=== PATIENT | female | born 1980 | race Caucasian/White ===

== ENCOUNTER 2025-05-09 17:17 | Emergency (ER) | payer SELFPAY ==
--- NOTE | ~2025-05-09 | US_ITS ---
CLINICAL HISTORY: pain, UTI symptoms US Renal Comparison: None Findings: Right kidney is absent or obscured. Left kidney measures 10.4 cm length. No hydronephrosis of the imaged left kidney. No definite shadowing stone of the imaged left kidney. Portions of the kidney obscured by side lobe artifacts. 8 mm cysts partially imaged in the lower pole of the kidney. IMPRESSION: 1. No hydronephrosis of the imaged left kidney. 2. 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 This document has been electronically signed by: Erlin Douglass MD on 05/09/2025 22:12:46
[2025-05-09 17:42] VITALS: BP 141/72; PULSE 78; RESP 18; TEMP 36.6; O2SAT 99; BMI 35.3
--- NOTE | 2025-05-09 17:46 | ED.GENADULT ---
HPI - General Adult General Chief complaint: Urogenital-Female Stated complaint: pain in kidney Time Seen by Provider: 05/09/25 20:53 Source: patient, old records reviewed and spanish interpreter/translator Mode of arrival: ambulatory Limitations: no limitations History of Present Illness ED Provider: MARIXA LEMA narrative: 44 yo female with PMH of asthma/fibroid surgery here with c/o urinary symptoms x 1 week that she tried to flush out. She then notes she was okay. For the past few days she now has dysuria but no n/v fevers and L flank pain which is new. No hx of renal colic. She does not get frequent UTIs. MD complaint: urinary symptoms, L flank pain Onset (ago): week(s) (1) Location: abdomen Radiation: non-radiation Severity: mild Quality: aching Pain Consistency: constant Relieving factors: none Exacerbating factors: none Associated symptoms: other (dysuria) Treatments prior to arrival: none Related Data Previous Rx's ?Medication ?Instructions ?Recorded cefuroxime axetil 500 mg tablet 500 mg PO BID 7 days #14 tabs 05/09/25 Allergies Allergy/AdvReac Type Severity Reaction Status Date / Time diphenhydramine Allergy Swelling Verified 05/09/25 17:46 [From Benadryl] Review of Systems Review of Systems: Constitutional : No Fever, No Chills ENT/Mouth : No sore throat Eyes: No Eye Pain, No Swelling, No Redness Cardiovascular : No Chest Pain, No SOB Respiratory : No Cough, No Sputum, No Wheezing Gastrointestinal : no Nausea, no Vomiting, No Diarrhea, positive abdominal pain Genitourinary : positive Dysuria, positive urinary frequency, no Hematuria, positive Flank Pain Musculoskeletal : No joint pain, No Myalgias Skin : No Skin Lesions, No rash Neuro : No Weakness, No Numbness, No Headache All other systems reviewed and are negative PMFSH Past Medical History Attestation statement: The following information was validated with the patient. Source: old records reviewed Medical History (Updated 05/10/25 @ 00:01 by Roslyn Dejesus) Asthma Social History Social History (Updated 05/09/25 @ 21:50 by Eulalia Rocha DO) Patient Tobacco Use Status: Never used Tobacco Smoked in Last 30 Days: No Use of substances other than those prescribed or required for medical reasons: No Advance Directives: No Advance Directives Information Provided: No Do you have a plan to hurt others: No Plan Physical Exam ED Vital Signs: Vital Signs - 24 hr 05/09/25 17:42 05/09/25 21:07 05/09/25 23:19 Temperature 98 F 98.0 F 98.0 F Pulse Rate 78 59 59 Respiratory Rate 18 18 Blood Pressure 141/72 H 116/58 L 116/58 L Pulse Oximetry 99 100 100 Oxygen Delivery Method Room Air Room Air BMI result Body Mass Index 35.3 Appearance: Alert. Oriented X3. No acute distress. Eyes: Pupils equal, round and reactive to light. ENT: Pharynx normal. Neck: Normal inspection. Neck supple. CVS: Normal heart rate and rhythm. Pulses normal. Respiratory: No respiratory distress. Breath sounds normal. Abdomen: Soft and nontender. L flank mild CVA ttp Skin: Skin warm and dry. Normal skin color. Normal skin turgor. Extremities: No lower extremity edema. No calf ttp Neuro: Oriented X 3. No motor deficit. No sensory deficit. CN2-12 intact Course Course Course Narrative: RME, this is a rapid medical exam performed by Silvestre Guan please refer to primary provider for complete H&P- 44 year old female presents for evaluation of lower abdominal pain and left flank pain. She had UTI symptoms last week. Plan for labs and a UA Medications Administered Discontinued Medications Generic Name Dose Route Start Last Admin Trade Name Freq PRN Reason Stop Dose Admin Cefuroxime Axetil 500 mg 05/09/25 22:15 05/09/25 23:11 Cefuroxime Axetil 500 Mg Tablet PO 05/09/25 22:16 500 mg ONCE ONE Administration Medical Decision Making Medical Decision Making [facility] Narrative: 44 yo female with PMH of asthma/fibroid surgery here with c/o now here with L flank pain and dysuria. NO hx of chronic UTIs and no hx of stones. She is afebrile and has no n/v and is not toxic appearing. At this time will obtain UA, labs and renal US for stone/hydro. Differential Diagnosis Differential Diagnoses: The differential diagnosis associated with the presentation includes UTI, pyelo, stone Admission/Observation Consideration of admission/observation: Escalation of care including admission/observation considered not toxic, tolerating PO stable for DC Lab Data [facility] Lab Attestation statement: I reviewed the patient's lab results. plan to repeat hcg in 3 days 05/09/25 17:59 05/09/25 17:59 Labs: Lab Results 05/09/25 Range/Units 17:59 WBC 8.5 (4.8-10.8) X10*3/uL RBC 4.13 L (4.20-5.50) X10*6/uL Hgb 10.4 L (12.0-16.0) g/dl Hct 33.6 L (37.0-47.0) % MCV 81.4 (80.0-98.0) fL MCH 25.2 L (27.0-33.0) pg MCHC 31.0 (31.0-35.0) g/dl RDW 17.2 H (11.0-16.0) % Plt Count 255 (160-400) X10*3/uL MPV 12.6 H (9.4-12.3) fL Immature Gran % (Auto) 0.5 H (0.0-0.4) % Neut % (Auto) 67.9 (45-73) % Lymph % (Auto) 20.1 (20-40) % [place] % (Auto) 8.1 (2-11) % Eos % (Auto) 2.1 (0-4) % Baso % (Auto) 1.3 (0-2) % Lymph # (Auto) 1.7 (1.2-4.9) X10*3/uL [place] # (Auto) 0.7 (0.1-1.2) X10*3/uL Eos # (Auto) 0.2 (0.0-0.4) X10*3/uL Baso # (Auto) 0.1 (0.0-0.2) X10*3/uL Abs Immat Gran (auto) 0.04 H (0.00-0.03) X10*3/uL Absolute Neuts (auto) 5.8 (2.0-8.3) x10*3/uL Absolute Nucleated RBC 0.000 (0.0-0.012) X10*3/uL Nucleated RBC % (auto) 0.0 (0.0-0.2) /100WBC Sodium 141 (135-145) mmol/L Potassium 4.0 (3.3-5.1) mmol/L Chloride 108 (96-108) mmol/L Carbon Dioxide 24 (22-29) mmol/L Anion Gap 13 (12-20) BUN 11 (9-16) mg/dL Creatinine 0.66 (0.5-1.4) mg/dL Estim Creat Clear Calc 114.1 Estimated GFR > 60 Random Glucose 95 (60-115) mg/dL Calcium 9.4 (8.4-10.2) mg/dL Total Bilirubin 0.2 (0.0-1.0) mg/dL AST 18 (5-31) U/L ALT 19 (0-31) U/L Alkaline Phosphatase 101 (39-117) U/L Total Protein 7.1 (6.5-8.0) g/dL Albumin 4.4 (3.5-5.0) g/dL Lipase 18 (8-78) U/L Beta HCG, Quant 5 mIU/mL Urine Color Yellow Urine Appearance Cloudy Urine pH 6.0 (5.0-9.0) Ur Specific [place] 1.020 (1.005-1.025) Urine Protein Trace (Neg-Trace) mg/dL Urine Glucose (UA) Negative (Negative) mg/dL Urine Ketones Trace (Negative) mg/dL Urine Blood Small (1+) H (Negative) Urine Nitrite Positive H (Negative) Ur Leukocyte Esterase Moderate (2+) H (Negative) Urine RBC 0-2 (0-2) /HPF Urine WBC 6-10 (0-5) /HPF Ur Squamous Epith Cells 6-10 (0-2) /HPF Urine Bacteria 4+ (None Seen) Hyaline Casts 3-5 (0-2) /LPF Independent Interpretation I performed an independent interpretation of an: Ultrasound (no hydro or stone) Radiology Impression Discussion of test interpretation with radiology: I have reviewed the radiologist's reading. Independent Historian Clinical information obtained from an independent historian. History obtained from or confirmed by: Spouse External Record Review External record reviewed: Outpatient record Prescription Management I considered prescription management with: Pain Medication, Antibiotic and Other Discharge Plan Discharge Clinical Impression: Urinary tract infection Patient Disposition: Home, Self-Care Instructions: Urinary Tract Infection in Women (ED) Additional Instructions: no stone or blockage on ultrasound repeat hormone test by your doctor in 3 days return for any worsening symptoms or concerns such as fevers, unable to eat or drink, vomiting or any other concerns Findings: 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 Left kidney measures 10.4 cm length. No hydronephrosis of the imaged left kidney. No definite shadowing stone of the imaged left kidney. Portions of the kidney obscured by side lobe artifacts. 8 mm cysts partially imaged in the lower pole of the kidney. IMPRESSION: 1. No hydronephrosis of the imaged left kidney. 2. 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 Prescriptions: New cefuroxime axetil 500 mg tablet 500 mg PO BID 7 Days Qty: 14 0RF Stand Alone Forms: Work/School Release Interventions: ED Discharge Assessment Last Done: 05/09/25 23:19 Discharge Date/Time: 05/09/25 23:21 Print Language: Colombian
[2025-05-09 18:02] LABS: MANUAL DIFF FLAG NO
[2025-05-09 18:05] LABS: Basophils Absolute Auto 0.1 X10*3/uL (0.0-0.2); Basophils Percent Auto 1.3 % (0-2); Eosinophils Absolute Auto 0.2 X10*3/uL (0.0-0.4); Eosinophils Percent Auto 2.1 % (0-4); Hematocrit 33.6 % (37.0-47.0); Hemoglobin 10.4 g/dl (12.0-16.0); Imm Gran Abs Auto 0.04 X10*3/uL (0.00-0.03); Imm Gran Pct Auto 0.5 % (0.0-0.4); Lymphocytes Absolute Auto 1.7 X10*3/uL (1.2-4.9); Lymphocytes Percent Auto 20.1 % (20-40); Mean Corpuscular Hemoglobin 25.2 pg (27.0-33.0); Mean Corpuscular Volume 81.4 fL (80.0-98.0); Mean Platelet Volume 12.6 fL (9.4-12.3); Monocytes Absolute Auto 0.7 X10*3/uL (0.1-1.2); Monocytes Percent Auto 8.1 % (2-11); Neutrophils Absolute Auto 5.8 x10*3/uL (2.0-8.3); Neutrophils Percent Auto 67.9 % (45-73); Platelet Count 255 X10*3/uL (160-400); Red Blood Count 4.13 X10*6/uL (4.20-5.50); Red Cell Distribution Width 17.2 % (11.0-16.0); White Blood Count 8.5 X10*3/uL (4.8-10.8)
[2025-05-09 18:11] LABS: Appearance Urine Cloudy; Color Urine Yellow; Glucose Urine UA Negative (Negative); Leukocyte Esterase Urine Moderate (2+) (Negative); Nitrite Urine Positive (Negative); UMIC TRIGGER UACC YES; Urine Blood Small (1+) (Negative); Urine Ketones Trace mg/dL (Negative); Urine Protein Trace mg/dL (Neg-Trace)
[2025-05-09 18:20] LABS: Bacteria Urine 4+ (None Seen); RBC Urine 0-2 /HPF (0-2); UACC Culture Trigger YES
[2025-05-09 18:25] LABS: Alanine Aminotransferase 19 U/L (0-31); Albumin Level 4.4 g/dL (3.5-5.0); Alkaline Phosphatase 101 U/L (39-117); Anion Gap 13 (12-20); Aspartate Amino Transferase 18 U/L (5-31); Bilirubin Total 0.2 mg/dL (0.0-1.0); Blood Urea Nitrogen 11 mg/dL (9-16); Calcium 9.4 mg/dL (8.4-10.2); Carbon Dioxide 24 mmol/L (22-29); Chloride 108 mmol/L (96-108); Creatinine Clr Calc Pharmacy 114.1; Estimated Glomerular Filt Rate > 60; Glucose Random 95 mg/dL (60-115); Lipase 18 U/L (8-78); Sodium 141 mmol/L (135-145); Total Protein 7.1 g/dL (6.5-8.0)
[2025-05-09 18:26] LABS: HCG Quantitative 5 mIU/mL
[2025-05-09 21:07] VITALS: BP 116/58; PULSE 59; TEMP 36.7; O2SAT 100
[2025-05-09] MEDS: cefuroxime axetiL 500 MG TABLET PO (23:11)
[2025-05-09 23:19] VITALS: BP 116/58; PULSE 59; RESP 18; TEMP 36.7; O2SAT 100
== END 2025-05-09 23:21 | disposition home or self-care (01) ==
PROVIDERS: Physician Assistant; Emergency Provider Emergency Medicine
DX: N39.0 Urinary tract infection, site not specified (principal); R10.2 Pelvic and perineal pain; R30.0 Dysuria; Z79.899 Other long term (current) drug therapy
CPT/HCPCS: 36415; 76775; 80053; 81001; 83690; 84702; 85025; 87086; 87088; 87186; 99284

== ENCOUNTER → 2025-05-09 21:15 | Outpatient (BNV) | payer SELFPAY | PROVIDERS: Emergency Provider Emergency Medicine; Visit Provider Radiology Neuroradiology | DX: N23 Unspecified renal colic (principal) | CPT/HCPCS: 76775 ==